=== PATIENT | male | born 2000 | race Caucasian/White ===

== ENCOUNTER 2020-12-11 15:23 | Emergency (ER) | payer OTHER ==
[~2020-12-11 15:23] MED LIST: FLOMAX0.4 MG PO; NORCO 5-325 TA1 EACH PO; ZOFRAN8 MG PO
[2020-12-11] MEDS ORDERED: AMOXICILLIN500 MG PO (19:14)
== END 2020-12-11 19:23 | disposition home or self-care (01) ==
LOC: FER 15:23
DX: H65.01 Acute serous otitis media, right ear (principal); F17.210 Nicotine dependence, cigarettes, uncomplicated
CPT/HCPCS: 99282